=== PATIENT | female | born 1960 | race Caucasian/White ===

== ENCOUNTER 2016-11-18 08:19 | Day surgery (SDC) | payer OTHER ==
[2016-11-16 17:51] VITALS: BMI 34.4
[2016-11-18] MEDS ORDERED: BOTULINUM TOXIN A 100 UNITS VIAL NR ONE (10:00)
[2016-11-18] MEDS ORDERED: PROPOFOL 20 ML ONE (10:37)
[2016-11-18] MEDS ORDERED: MIDAZOLAM HCL 2 MG/2 ML SINGLE DOSE VIAL ONE (10:37)
[2016-11-18] MEDS ORDERED: ceFAZolin SODIUM 1 GM VIAL IVPB ONE (11:01)
[2016-11-18] MEDS ORDERED: ceFAZolin SODIUM 1 GM VIAL ONE (11:02)
[2016-11-18] MEDS ORDERED: ONABOTULINUMTOXINA 200 UNIT/VIAL VIAL IM ONE (11:15)
[2016-11-18] MEDS ORDERED: OXYCODONE/APAP 5/325MG COMBO TABLET PO PRN (11:40)
--- NOTE | 2016-11-18 11:45 | OP ---
Operative Note - Note: Operative Date: 11/18/16 Pre-Operative Diagnosis: OAB Operation: CYSTO,BLADDER BIOPSY AND FULGERETION AND BOTOX INJECTION Findings: BLADDER MASS BLADDER PETECHIA Post-Operative Diagnosis: Other (BLADDER MASS) Estimated Blood Loss (mls): 10 Drains & Tubes with Location: 16F GASTON Drains, Volume Out (mls): 0 Blood Volume Replaced (mls): 0 Operative Report Dictated: Yes
[2016-11-18] MEDS ORDERED: oxyCODONE HCL 5 MG TABLET PO PRN (12:03)
[2016-11-18] MEDS ORDERED: ACETAMINOPHEN 325 MG TABLET (FP) PO PRN (12:03)
--- NOTE | 2016-11-18 13:07 | HP ---
DATE OF ADMISSION: 11/18/2016 HISTORY OF PRESENT ILLNESS: Patient is a 56-year-old female with history of refractory overactive bladder. She wakes up 4-6 times at night, has urinary frequency every hour, urgency, urgency incontinence, hesitancy, and feelings of incomplete emptying. Patient has failed all anticholinergic medications. She has failed biofeedback. She denies dysuria or hematuria. She does complain of dyspareunia, also has history of dyslipidemia. She has undergone bilateral tubal ligation. She also has had a total abdominal hysterectomy and bilateral breast reductions. The patient is . She is on simvastatin for her dyslipidemia. She denies any ethanolism, tobacco, or allergy. PHYSICAL EXAMINATION: General: Revealed a well-developed adult female. Head, ears, eyes, nose, and throat: Are negative. Chest: Is clear to auscultation and percussion. Abdomen: Is globose. There is no CVA tenderness. There is some suprapubic tenderness. Genitalia: Revealed normal external genitalia. Meatus appeared to be adequate. Pelvis: No cysto-rectocele was found. Vaginal mucosa was normal. Baltazar test was negative. Extremities: Showed full range of motion with no cyanosis, clubbing, or edema. IMPRESSION: At present is overactive bladder, possible interstitial cystitis. Will perform a cystourethroscopy with Botox injection. This has been explained fully to the patient, and she agrees. ARVIND DUNBAR M.D. [id number]
[2016-11-18] MEDS ORDERED: ONDANSETRON 4 MG/2 ML VIAL IVPUSH PRN (13:22)
--- NOTE | 2016-11-18 13:55 | OP ---
DATE OF OPERATION: PREOPERATIVE DIAGNOSIS: Overactive bladder. POSTOPERATIVE DIAGNOSIS: Overactive bladder with bladder lesion. OPERATIVE PROCEDURE: Cystourethroscopy, bladder biopsy, bladder fulguration, injection of Botox into bladder. ANESTHESIA: General. DESCRIPTION OF PROCEDURE: Under above-stated anesthesia, the patient is prepped and draped in the usual sterile manner. She is placed in the dorsal lithotomy position. Examination of the external genitalia revealed normal introitus. No cystorectocele was seen. Cystoscopy revealed a normal anterior urethra and bladder neck. Urine was collected for C and S and cytology. Inspection of the bladder revealed multiple petechia and hemorrhages indicative interstitial cystitis. Further inspection of the bladder revealed a papillary lesion over the right hemitrigone on the right lateral side. Using a biopsy forceps, the entire lesion was removed. The base was fulgurated with cautery. No active bleeding was noted. Again, inspection of the entire bladder revealed multiple petechia indicative of interstitial cystitis. Therefore, 100 units of Botox was placed in 20 mL of sterile water, and 5 rows of 5 mL of the mixture was placed into the bladder right above the trigone starting from the right lateral wall and moving on to the left lateral wall. Again, 5 rows were performed approximately 2 cm above each other. This extended to the dome of the bladder. No active bleeding was noted. Ureteral orifices were within normal limits with efflux of clear urine. Because of the bladder biopsy, a 16-[place] Cooper was left in place. The patient tolerated the procedure well. She returned to the recovery room in good condition. Taras [id number]
[2016-11-18 14:45] VITALS: TEMP 97.7
[2016-11-18 15:22] VITALS: BP 137/70; PULSE 64
--- NOTE | 2016-11-21 10:24 | PATH ---
Surgical Pathology Report Patient Name: KIM SIMEON [facility]. Rec. #: [id number] /Age/Gender: 1960 (Age: 56) / F Account: [id number] Location: [facility] SURG[facility] Taken: 11/18/2016 Received: 11/18/2016 Reported: 11/21/2016 Physicians: Andrews Brito M.D. Specimen(s) Received BLADDER BIOPSY Clinical History Overactive bladder Final Diagnosis BLADDER, BIOPSY: BENIGN BLADDER MUCOSA WITH FOCAL LAMINA PROPRIA FIBROSIS AND VASCULAR ECTASIA, ALONG WITH FOCAL MILD CHRONIC INFLAMMATION. Comment: Also see cytology specimen [id number]. Electronically Signed Eric Gomez M.D. Gross Description Received in formalin, labeled "bladder biopsy," is a 0.2 cm in greatest dimension pink-alcala, irregular portion of soft tissue which is submitted in toto in one cassette. 11/18/201611/18/2016
--- NOTE | 2016-11-21 14:31 | PATH ---
Cytology Non-Gynecological Report Patient Name: KIM SIMEON [facility]. Rec. #: [id number] /Age/Gender: 1960 (Age: 56) / F Account: [id number] Location: [facility] Taken: 11/18/2016 Received: 11/18/2016 Reported: 11/21/2016 Physicians: Andrews Brito M.D. Specimen(s) Received URINE VOIDED Clinical History Overactive bladder Final Diagnosis URINE FOR CYTOLOGY: SATISFACTORY FOR EVALUATION. ATYPICAL CLUSTERS OF UROTHELIAL CELLS ARE PRESENT, SOME IN A PAPILLARY PATTERN. BENIGN REACTIVE UROTHELIAL CELLS, LYMPHOCYTES, NEUTROPHILS, AND RED BLOOD CELLS PRESENT. Comment: Clusters of urothelial cells are atypical finding in voided urine, and may be the result of infection, inflammation, or instrumentation. However, the possibility of a low grade urothelial neoplasm cannot be excluded. Recommend correlation with clinical findings and followup as clinically indicated. Also see [id number]. Electronically Signed Eric Gomez M.D. Gross Description Approximately 100 cc of yellow fluid received fresh. One cytofunnel and one cellblock prepared.
== END 2016-11-18 15:55 | disposition home or self-care (01) ==
LOC: JASU-SURG 08:19
PROVIDERS: ATTEND Urology
PROC: 3E0K8GC Introduction of Other Therapeutic Substance into Genitourinary Tract, Via Natural or Artificial Opening Endoscopic (ICD-10-PCS; 2016-11-18)
PROC: 0T5B8ZZ Destruction of Bladder, Via Natural or Artificial Opening Endoscopic (ICD-10-PCS; principal; 2016-11-18 10:00)
DX: N32.81 Overactive bladder (principal); D30.3 Benign neoplasm of bladder; N30.11 Interstitial cystitis (chronic) with hematuria
CPT/HCPCS: 52224; 52287; J0587; 88108; 88305-TC; 94760; J0585

== ENCOUNTER 2019-10-12 08:17 | Emergency (ER) | payer OTHER ==
[2019-10-12] MEDS ORDERED: ACETAMINOPHEN 325 MG TABLET (FP) ONE (08:20)
[2019-10-12 08:25] VITALS: BMI 32.0
[2019-10-12] MEDS ORDERED: KETOROLAC TROMETHAMINE 60 MG/2 ML VIAL IM ONE (08:47)
[2019-10-12] MEDS ORDERED: SODIUM CHLORIDE 0.9% 500 ML INFUS.BAG IV ONE (08:54)
--- NOTE | 2019-10-12 08:54 | PDOC ---
History of Present Illness - General Chief Complaint: Cold Symptoms Stated Complaint: FLU SYMPTOMS Time Seen by Provider: 10/12/19 08:46 History Source: Patient Exam Limitations: No Limitations - History of Present Illness Is this a multiple visit Asthma Patient?: No Associated Symptoms: reports: cough, fever/chills, muscle aches, nasal congestion, nasal drainage, sore throat. denies: chest pain/soreness, dizziness , earache, facial pain, headache, lightheadedness, shortness of breath, wheezing Past History - Travel Traveled outside of the country in the last 30 days: No Close contact w/someone who was outside of country & ill: No - Past Medical History Allergies/Adverse Reactions: Allergies Allergy/AdvReac Type Severity Reaction Status Date / Time No Known Allergies Allergy Verified 10/12/19 08:18 Home Medications: Ambulatory Orders Brook-3/Dha/Epa/Fish Oil [Brook 3 500 Softgel] 1 each PO DAILY 11/16/16 Simvastatin 5 mg PO DAILY 11/16/16 Calcium Carbonate [Calcium] 500 mg PO DAILY 11/18/16 Multivitamin [Poly-Vitamin] 1 each PO DAILY 11/18/16 Acetaminophen [Tylenol] 650 mg PO ONCE 10/12/19 Amoxicillin - [Amoxicillin 500mg Capsule -] 500 mg PO BID 10 Days #20 capsule Ibuprofen [Ibu] 600 mg PO ACDIN 10 Days #30 tablet 10/12/19 Hypercholesterolemia: Yes - Psycho Social/Smoking Cessation Hx Smoking History: Never smoked Hx Alcohol Use: No Drug/Substance Use Hx: No Substance Use Type: None Hx Substance Use Treatment: No Review of Systems - Review of Systems Able to Perform ROS?: Yes Is the patient limited Russian proficient: No Constitutional: Yes: Chills, Fever HEENTM: Yes: Nose Congestion, Throat Pain. No: Throat Swelling Respiratory: Yes: Cough, Productive cough. No: Shortness of Breath, Wheezing Cardiac (ROS): No: Chest Pain, Lightheadedness, Palpitations ABD/GI: No: Abdominal Distended, Diarrhea, Nausea, Vomiting, Abdominal cramping : No: Burning, Dysuria, Urgency, Testicular Pain Musculoskeletal: Yes: Muscle Pain. No: Back Pain, Joint Pain, Joint Swelling, Muscle Weakness, Neck Pain, Joint Stiffness Neurological: Yes: Headache. No: Numbness, Paresthesia, Tingling, Weakness, Ataxia, Dizziness *Physical Exam - Vital Signs Last Vital Signs Temp Pulse Resp BP Pulse Ox 102 F H 122 H 18 105/76 97 10/12/19 08:23 10/12/19 08:23 10/12/19 08:23 10/12/19 08:23 10/12/19 08:23 - Physical Exam General Appearance: Yes: Nourished HEENT: positive: EOMI, MATT, TMs Normal, Pharyngeal Erythema, Nasal Congestion, Rhinorrhea. negative: Sinus Tenderness Neck: positive: Supple Respiratory/Chest: positive: Lungs Clear, Normal Breath Sounds Cardiovascular: positive: Regular Rhythm, Regular Rate, S1, S2 Gastrointestinal/Abdominal: positive: Normal Bowel Sounds, Soft Extremity: positive: Normal Capillary Refill Neurologic: positive: regional director of finance II-XII NML intact, Fully Oriented, Alert, Normal Mood/ Affect, Normal Response, Motor Strength 5/ ED Treatment Course - RADIOLOGY Radiology Studies Ordered: Category Date Time Status CHEST PA & LAT [RAD] Stat Radiology 10/12/19 08:51 Ordered Medical Decision Making - Medical Decision Making 10/12/19 08:52 59 years old female with history of hyperlipidemia presents with generalized body aches, chills, fever, productive cough and sore throat for 2 days. On exam patient is weak appearing she is tachycardic and febrile in ER. Suspect viral syndrome. Fluids and IV Toradol given chest x-ray rapid flu and influenza and strep sent. Repeat vitals and disposition pending Strep is positive patient opted for amoxicillin. First dose given here in clinic. Rapid influenza was negative chest x-ray still pending Chest x-ray no PNA. Patient reevaluated she appears very comfortable vital signs are small stable. Amoxicillin sent to the pharmacy and hydration encourage 10/12/19 10:11 Discharge - Discharge Information Problems reviewed: Yes Clinical Impression/Diagnosis: Strep pharyngitis Condition: Stable Disposition: HOME - Additional Discharge Information Prescriptions: Amoxicillin - [Amoxicillin 500mg Capsule -] 500 mg PO BID 10 Days #20 capsule Ibuprofen [Ibu] 600 mg PO ACDIN 10 Days #30 tablet Prescription Drug Monitoring Program (I-STOP) results: I-STOP not reviewed - Follow up/Referral Referrals: Tip Mcrae MD [Primary Care Provider] - - Patient Discharge Instructions Patient Printed Discharge Instructions: DI for Strep Throat Additional Instructions: Your strep was positive today. Please take antibiotics as prescribed that was sent to the pharmacy. Change toothbrush on 2-3 days after medication has started. Contagious until on antibiotics for 24 hours. may gargle with warm salt water for pain relief. May also take tylenol/ motrin for pain or fever. . Keep hydrated . Soft cool foods . Your influenza test and chest x-ray was negative for an infection Continue hydration. Return to the emergency room if worsening fever, chills, drooling occurs. Otherwise follow-up with your primary care doctor - Post Discharge Activity Work/Back to School Note: Back to Work
[2019-10-12] MEDS ORDERED: KETOROLAC TROMETHAMINE 30 MG/1 ML VIAL IVPUSH ONE (08:55)
[2019-10-12] MEDS ORDERED: KETOROLAC TROMETHAMINE 30 MG/1 ML VIAL ONE (09:20)
[2019-10-12] MEDS ORDERED: AMOXICILLIN 500 MG CAPSULE (FP) PO ONE (09:44)
[2019-10-12] MEDS ORDERED: AMOXICILLIN 250 MG CAPSULE ONE (09:56)
[2019-10-12 10:07] VITALS: BP 114/71; PULSE 96; TEMP 98.7
== END 2019-10-12 10:18 | disposition home or self-care (01) ==
LOC: JERFT 08:17 → JER 08:17 → JERFT 10:18
PROC: 3E0333Z Introduction of Anti-inflammatory into Peripheral Vein, Percutaneous Approach (ICD-10-PCS; principal; 2019-10-12)
DX: J02.0 Streptococcal pharyngitis (principal); B95.0 Streptococcus, group A, as the cause of diseases classified elsewhere; E78.00 Pure hypercholesterolemia, unspecified
CPT/HCPCS: 71046-TC-FY; 87804; 87880; 96374; 99282-25

== ENCOUNTER 2023-09-06 07:09 | Emergency (ER) | payer MEDICARE, OTHER ==
[2023-09-06 07:33] VITALS: BP 110/73; PULSE 65; RESP 18; TEMP 99.4; BMI 36.6
[2023-09-06] MEDS ORDERED: ACETAMINOPHEN 500 MG TABLET (FP) PO ONE (07:45)
[2023-09-06] MEDS ORDERED: ACETAMINOPHEN 500 MG TABLET (FP) ONE (07:59)
== END 2023-09-06 10:50 | disposition home or self-care (01) ==
LOC: JER 07:09 → JERFT 07:09
DX: R50.9 Fever, unspecified (principal); R51.9 Headache, unspecified; R05.9 Cough, unspecified; R09.82 Postnasal drip; J02.9 Acute pharyngitis, unspecified; Z20.822 Contact with and (suspected) exposure to COVID-19
CPT/HCPCS: 0241U-QW; 87651; 99283-25